=== PATIENT | male | born 1960 | race Hispanic/Latino ===

== ENCOUNTER 2019-08-08 23:36 | Emergency (ER) | payer SELFPAY | END 2019-08-09 13:53 | disposition home or self-care (01) | LOC: ED 23:36 | CPT/HCPCS: 36415; 71045; 74177; 80048; 80076; 80307; 81001; 83690; 84484; 85025; 85610; 85730; 93005; 93010; 96374; 96375; 99285; C9113; J2270; J2405; Q9967 ==